=== PATIENT | male | born 1980 | race Caucasian/White ===

== ENCOUNTER 2016-07-09 10:03 | Outpatient (CLI) | payer MEDICARE, OTHER ==
[2014-12-26 10:51] VITALS: BP 114/68
[2016-07-09 10:29] LABS: BASOPHILS % 0.6 (0.0-1.5); EOSINOPHILS % 2.3 % (0.0-6.8); LYMPHOCYTES # 1.4 # k/uL (0.6-4.0); MEAN CORPUSCULAR HEMOGLOBIN 29.3 pg (28.0-34.0); MONOCYTES # 0.4 # k/uL (0.0-0.9); MONOCYTES % 6.1 % (0.0-11.0); NEUTROPHILS # 4.9 # k/uL (1.4-7.7)
== END 2016-07-09 10:15 ==
LOC: LAB 10:03
PROVIDERS: ATTEND Internal Medicine Endocrinology, Diabetes & Metabolism
DX: E05.90 Thyrotoxicosis, unspecified without thyrotoxic crisis or storm (principal)
CPT/HCPCS: 36415; 80053; 84439; 84443; 85025

== ENCOUNTER 2017-06-08 10:50 | Outpatient (CLI) | payer MEDICARE, OTHER ==
[2014-12-26 10:51] VITALS: BP 114/68
--- NOTE | 2017-06-08 13:23 | Diagnostic Imaging Report ---
STEPHY BYERS [facility] [address] [facility].[address] [address] Report Submission Date: Jun 08, 2017 11:38:32 AM [employer] Patient Study Name: MADYSON CARPENTER Date: Jun 08, 2017 11:08:02 AM [employer] Modality Type: CR Gender: M Description: LOWER EXTREMITY : 76 Institution: [facility] Physician: STEPHY BYERS Examination: Plain film foot History: 5th digit discomfort. Findings: 3 views of the foot demonstrates normal cortical margins. No fracture or dislocation. Inferior calcaneal spur. No soft tissue swelling. No joint effusion. Impression: Calcaneal spur. No acute appearing osseous process. Electronically signed on Jun 08, 2017 11:38:32 AM [employer] by: Lucas PAGAN
== END 2017-06-08 10:52 ==
LOC: LAB 10:50
PROVIDERS: ATTEND Family Medicine
DX: M79.89 Other specified soft tissue disorders (principal)
CPT/HCPCS: 36415; 73630; 84550

== ENCOUNTER 2017-06-17 10:21 | Outpatient (CLI) | payer MEDICARE, OTHER ==
[2014-12-26 10:51] VITALS: BP 114/68
[2017-06-17 10:41] LABS: BASOPHILS % 0.4 (0.0-1.5); EOSINOPHILS % 1.7 % (0.0-6.8); MEAN CORPUSCULAR HEMOGLOBIN 29.8 pg (28.0-34.0); MEAN CORPUSCULAR VOLUME 89.4 fl (80.0-100.0); NEUTROPHILS # 6.8 # k/uL (1.4-7.7)
[2017-06-17 10:57] LABS: eGFR (African) > 60; eGFR (Non-African) > 60
== END 2017-06-17 10:23 ==
LOC: LAB 10:21
PROVIDERS: ATTEND Internal Medicine Cardiovascular Disease
DX: I50.22 Chronic systolic (congestive) heart failure (principal); I48.2 Chronic atrial fibrillation; I10 Essential (primary) hypertension
CPT/HCPCS: 36415; 80053; 83880; 84443; 85025

== ENCOUNTER 2017-09-07 02:30 | Emergency (ER) | payer MEDICARE, OTHER ==
--- NOTE | 2017-09-07 03:03 | ED Physician Documentation ---
General Adult - HISTORIAN Historian: patient - HPI Stated Complaint: Bleeding varicose vein Chief Complaint: General Adult Onset: hours Timing: still present Severity: moderate Further Comments: yes (Pt is a 37 yo male with a bleeding varicose vein in his L ankle. Pt sat many hours with his leg elevated and could not get bleeding to stop. Pt has had this problem many times. He is to have vein stripping next week to try to clear up this problem.) - ROS CONST: no problems EYES/ENT: none CVS/RESP: none GI/: none MS/SKIN/LYMPH: other (bleeding varicosity L ankle) - PAST HX Past History: other (CHF) Surgeries/Procedures: cholecystectomy Allergies/Adverse Reactions: Allergies Allergy/AdvReac Type Severity Reaction Status Date / Time No Known Allergies Allergy Verified 09/07/17 02:43 Home Medications: Ambulatory Orders Medication Instructions Recorded Apixaban [Eliquis] 5 mg PO BID 12/26/14 Carvedilol [Coreg] 25 mg PO BID 12/26/14 Digoxin [Digox] 250 mcg D 12/26/14 Furosemide [Furosemide] 40 mg PO 6XDAY PRN 12/26/14 Lisinopril [Lisinopril] 20 mg PO D 12/26/14 Multivitamin [Daily Multiple 1 each PO DAILY 09/07/17 Vitamin] Spironolactone [Aldactone] 0.5 tab PO DAILY 09/07/17 - SOCIAL HX Smoking History: non-smoker Alcohol Use: occasionally - FAMILY HX Family History: No - VITAL SIGNS Vital Signs: Vital Signs Temp Pulse Resp BP Pulse Ox 97.4 F L 88 16 109/70 96 09/07/17 02:30 09/07/17 02:30 09/07/17 02:30 09/07/17 02:30 09/07/17 02:30 - REVIEWED ASSESSMENTS Nursing Assessment Reviewed: Yes Vitals Reviewed: Yes Progress - Progress Progress: Dermabond applied over previous bleeding site. Pressure bandage also applied to area of L ankle. improved Pt is to f/u for vein stripping next week. General Adult Physical Exam - PHYSICAL EXAM GENERAL APPEARANCE: mild distress NECK: normal inspection, supple RESPIRATORY: no resp distress, chest non-tender, breath sounds normal CVS: reg rate & rhythm, heart sounds normal, equal pulses BACK: normal inspection SKIN: other (evidence of a bleeding varicosity L ankle, bleeding now controlled) EXTREMITIES: non-tender, normal range of motion, other (evidence of a bleeding varicosity L ankle, bleeding now controlled) NEURO: oriented X3, motor nml, sensation nml Discharge Clincal Impression: varicose vein, with bleeding Referrals: Nereida Bryson MD [Primary Care Provider] - Condition: Good Disposition: 01 HOME, SELF-CARE Decision to Admit: NO Decision Time: 03:15
[2017-09-07 03:21] VITALS: BP 100/78
== END 2017-09-07 03:20 | disposition home or self-care (01) ==
LOC: ED 02:30
DX: I83.892 Varicose veins of left lower extremity with other complications (principal)
CPT/HCPCS: 99282

== ENCOUNTER 2018-03-17 08:56 | Outpatient (CLI) | payer MEDICARE, OTHER ==
[2018-03-17 10:58] LABS: eGFR (Non-African) > 60
[2018-03-17 16:32] LABS: BASO % 0.8 % (0.0-1.5); EOS % 1.8 % (0.0-6.8); LYMPH ABS # 1.12 thou/uL (0.60-4.00); MCH. 27.6 pg (28.0-34.0); MONOCYTE % 9.3 % (0.0-11.0); MONOCYTE ABS # 0.47 thou/uL (0.00-0.90); PLATELET COUNT 214 thou/uL (130-400)
== END 2018-03-17 08:57 ==
LOC: LAB 08:56
PROVIDERS: ATTEND Internal Medicine Cardiovascular Disease
DX: I42.0 Dilated cardiomyopathy (principal); I48.2 Chronic atrial fibrillation; I50.22 Chronic systolic (congestive) heart failure
CPT/HCPCS: 36415; 80053; 80162; 82728; 83880; 84443; 85025

== ENCOUNTER 2018-05-09 14:39 | Outpatient (CLI) | payer MEDICARE, OTHER ==
--- NOTE | 2018-05-09 15:30 | Diagnostic Imaging Report ---
STEPHY BYERS [facility] [address] [facility] [address] [place], [place]. [address] Report Submission Date: May 09, 2018 3:01:56 PM [employer] Patient Study Name: MADYSON CARPENTER Date: May 09, 2018 2:37:08 PM [employer] Modality Type: DX Gender: M Description: CHEST : 76 Institution: [facility] Physician: STEPHY BYERS Examination: PA and lateral chest. History: Evaluate lung hector. COUGH x2 WEEKS, Hx OF HEART FAILURE (Hx) Comparison exam: None provided. Findings: PA and lateral views of the chest demonstrates a prominent cardiac and mediastinal silhouette. Sternotomy wires. Aortic arch mesh. Mild central interstitial prominence. No focal consolidation. No blunting of the costophrenic margins. Left-sided cardiac pacemaker. Osseous structures are appropriate for age. Impression: No acute pulmonary process. Electronically signed on May 09, 2018 3:01:56 PM [employer] by: Lucas PAGAN
== END 2018-05-09 14:40 ==
LOC: RAD 14:39
PROVIDERS: ATTEND Family Medicine
DX: R05 Cough (principal)
CPT/HCPCS: 71046

== ENCOUNTER 2018-07-18 09:43 | Outpatient (CLI) | payer MEDICARE, OTHER ==
[2018-07-18 10:10] LABS: BASOPHILS % 0.4 (0.0-1.5); EOSINOPHILS % 1.7 % (0.0-6.8); MEAN CORPUSCULAR HEMOGLOBIN 28.2 pg (28.0-34.0); MONOCYTES % 6.6 % (0.0-11.0)
[2018-07-18 10:11] LABS: NEUTROPHILS # 7.3 # k/uL (1.4-7.7)
[2018-07-18 10:15] LABS: eGFR (Non-African) 44
== END 2018-07-18 10:00 ==
LOC: LAB 09:43
PROVIDERS: ATTEND Internal Medicine
DX: K66.1 Hemoperitoneum (principal); D62 Acute posthemorrhagic anemia; I42.8 Other cardiomyopathies
CPT/HCPCS: 36415; 80048; 85025

== ENCOUNTER 2018-08-15 11:17 | Outpatient (CLI) | payer MEDICARE, OTHER ==
[2018-08-15 12:09] LABS: eGFR (Non-African) > 60
== END 2018-08-15 11:19 ==
LOC: LAB 11:17
PROVIDERS: ATTEND Nurse Practitioner
DX: I42.8 Other cardiomyopathies (principal)
CPT/HCPCS: 36415; 80048

== ENCOUNTER 2018-08-29 09:52 | Outpatient (CLI) | payer MEDICARE, OTHER ==
[2018-08-29 10:34] LABS: MEAN CORPUSCULAR HEMOGLOBIN 28.5 pg (28.0-34.0)
[2018-08-29 10:35] LABS: eGFR (Non-African) > 60
== END 2018-08-29 09:54 ==
LOC: LAB 09:52
PROVIDERS: ATTEND Internal Medicine Cardiovascular Disease
DX: I42.0 Dilated cardiomyopathy (principal); I48.2 Chronic atrial fibrillation; I50.22 Chronic systolic (congestive) heart failure
CPT/HCPCS: 36415; 80053; 80162; 83880; 85027

== ENCOUNTER 2018-11-30 09:41 | Outpatient (CLI) | payer MEDICARE, OTHER ==
[2018-12-08 07:59] LABS: eGFR (Non-African) > 60
== END 2018-11-30 09:46 | disposition home or self-care (01) ==
LOC: LAB 09:41
PROVIDERS: ATTEND Internal Medicine Cardiovascular Disease
DX: I11.0 Hypertensive heart disease with heart failure (principal); I42.0 Dilated cardiomyopathy; I50.22 Chronic systolic (congestive) heart failure
CPT/HCPCS: 36415; 80053; 83880; 85027

== ENCOUNTER 2018-12-13 11:45 | Outpatient (CLI) | payer MEDICARE, OTHER ==
[2018-12-13 12:19] LABS: eGFR (Non-African) > 60
== END 2018-12-13 11:47 ==
LOC: LAB 11:45
PROVIDERS: ATTEND Internal Medicine Cardiovascular Disease
DX: I48.2 Chronic atrial fibrillation (principal); I50.22 Chronic systolic (congestive) heart failure
CPT/HCPCS: 36415; 80048; 85027

== ENCOUNTER 2019-01-02 14:39 | Emergency (ER) | payer MEDICARE, OTHER ==
[2019-01-02 14:55] LABS: BASOPHILS % 0.5 % (0.0-1.5); NEUTROPHILS # 5.1 # k/uL (1.4-7.7)
[2019-01-02 15:02] LABS: eGFR (Non-African) 53
[2019-01-02] MEDS ORDERED: CALCIUM CHLORIDE 1,000 MG/10 ML SYR IV ONE (15:09)
[2019-01-02] MEDS ORDERED: CALCIUM GLUCONATE 100 MG/ML VIAL IV ONE (15:09)
[2019-01-02] MEDS ORDERED: 0.9 % SODIUM CHLORIDE 1,000 ML IV ONE ×2 (15:23→16:48)
[2019-01-02] MEDS ORDERED: 0.9 % SODIUM CHLORIDE 500 ML IV ONE (15:55)
--- NOTE | 2019-01-02 16:00 | ED Physician Documentation ---
General Adult - HISTORIAN Historian: paramedics, parent - HPI Stated Complaint: cardiac arrest Chief Complaint: General Adult Onset: minutes Timing: still present Severity: severe Further Comments: yes (Pt is a 38 yo white male who comes to ER in cardiac arrest with CPR in progress. Pt has Stage III CHF and an implanted pacemaker/defibrillator. He was riding with family in the back seat of the car when he passed out and his defibrillator discharged. EMT arrived after 10 minutes and began CPR and transported pt to ER. EMT's were unable to give meds en route. Pt is a heart transplant candidate seen in [place] and is seen by Dr. Del Castillo at [facility] in [place]. See progress note.) - ROS CONST: other (Pt unresponsive, cannot give ROS) - PAST HX Past History: other (Cardiomyopathy, Stage III CHF, hx atrial fibrillation, anemia, thyrotoxicosis, HTN, aortic aneurysm, congenital coartation of the aorta.) Surgeries/Procedures: cholecystectomy, other (open heart surgery x3 in 22 years) Allergies/Adverse Reactions: Allergies Allergy/AdvReac Type Severity Reaction Status Date / Time No Known Drug Allergies Allergy Verified 01/02/19 20:55 Home Medications: Ambulatory Orders Medication Instructions Recorded Apixaban [Eliquis] 5 mg PO BID 12/26/14 Carvedilol [Coreg] 25 mg PO BID 12/26/14 Digoxin [Digox] 250 mcg D 12/26/14 Furosemide 40 mg PO 6XDAY PRN 12/26/14 Lisinopril 20 mg PO D 12/26/14 Multivitamin [Daily Multiple 1 each PO DAILY 09/07/17 Vitamin] Spironolactone [Aldactone] 0.5 tab PO DAILY 09/07/17 - SOCIAL HX Smoking History: other (smoking hx unk) - FAMILY HX Family History: No - VITAL SIGNS Vital Signs: Vital Signs Temp Pulse Resp BP Pulse Ox 100/78 09/07/17 03:20 - REVIEWED ASSESSMENTS Nursing Assessment Reviewed: Yes Vitals Reviewed: Yes Progress - Progress Progress: Pt with implanted pacer/defibrillator passed out in back seat of car and internal defibrillator discharged several times. EMS initiated CPR upon arrival about 10 min later. Defibrillator discharged several times while cpr in progress both en route to hospital and after arrival here, where cpr was continued. Pt given amiodarone x 2, and was intubated. Initial rhythm in ER was V-fib and pt was shocked with ER external defibrillator, and CPR continued. Pt was given 1 L IVF, and lidocaine 100 mg IV. He was given Epinephrine 1 mg, q 5 min. He remained in v-fib and received shocks x 4 at interval, when pt then showed a sinus rhythm and had a faint carotid pulse. Pt was hypotensive however and an epinephrine drip was started. Pt was given bicarbonate ampule. Frothy blood appeared in the ET tube and pt was suctioned. Pt remained in sinus rhythm with SBP as high as 120, but then became hypotensive the epinephrine drip rate was increased. Pt had some spontaneous respirations at a rate of about 8/min, and remained in this relatively stable condition for >20 min. Transport by helicopter was arranged to [facility], but shortly before Air transport arrived, pt's condition began to deteriorate w worsening hypotension and a second IV line with Levophed was established. Pt then went back into v- tach and was again given shocks at interval. Pt received bicarbonate again in the course of this very lengthy revival attempt. Pulse checks, or rather heart activity checks, were conducted with ultrasound provided by flight crew, but there was little if any cardiac activity and no perfusing activity. Pt's pupils at this time appeared fixed and dilated. Family member, pt's mother, was present during some of the latter stages of resuscitation, which in the ER went on for 114 minutes in addition to the time of resuscitation efforts pilot captain. The futility of continuing these efforts was discussed with pt's mother and with ER staff. CPR was discontinued at 16:21 (time of ). See nurses note and code run chart for details of resuscitation attempt. ED Results Lab/Radiology - Lab Results Lab Results: Lab Results 01/02/19 01/02/19 01/02/19 14:51 14:51 14:51 WBC 8.30 K/ul K/ul (4.00-12.00) RBC 4.57 M/ul M/ul (3.90-5.20) Hgb 12.2 g/dL g/dL (12.0-18.0) Hct 37.5 % % (37.0-53.0) MCV 82.0 fl fl (80.0-100.0) MCH 26.8 pg L pg (28.0-34.0) MCHC 32.6 g/dL g/dL (30.0-36.0) RDW 15.3 % H % (11.3-14.3) Plt Count 225 K/mm3 K/mm3 (130-400) Neut % (Auto) 60.7 % % (39.0-79.0) Lymph % (Auto) 33.1 % % (16.0-50.0) [place] % (Auto) 4.9 % % (0.0-11.0) Eos % (Auto) 0.8 % % (0.0-6.8) Baso % (Auto) 0.5 % % (0.0-1.5) Neut # (Auto) 5.1 # k/uL # k/uL (1.4-7.7) Lymph # (Auto) 2.8 # k/uL # k/uL (0.6-4.0) Screven # (Auto) 0.4 # k/uL # k/uL (0.0-0.9) Eos # (Auto) 0.1 # k/uL # k/uL (0.0-0.6) Baso # (Auto) 0.0 # k/uL # k/uL (0.0-0.5) Sodium 132 mmol/L L mmol/L (137-145) Potassium 3.0 mmol/L L mmol/L (3.5-5.1) Chloride 83 mmol/L L mmol/L (98-107) Carbon Dioxide 28 mmol/L mmol/L (22-30) Anion Gap 24.0 mmol/L H mmol/L (3-11) BUN 43 mg/dL H mg/dL (9-20) Creatinine 1.55 mg/dL H mg/dL (0.66-1.25) Est GFR ( Amer) > 60 (60 - ) Est GFR (Non-Af Amer) 53 L (60 - ) Glucose 184 mg/dL H mg/dL (74-106) Calcium 9.6 mg/dL mg/dL (8.4-10.2) Total Bilirubin 2.8 mg/dL H mg/dL (0.2-1.3) AST 41 U/L U/L (15-46) ALT 13 U/L U/L (13-69) Alkaline Phosphatase 80 U/L U/L (38-126) Creatine Kinase 116 U/L U/L (55-170) Troponin I 0.047 ng/mL H ng/mL (0.012-0.034) Total Protein 8.0 g/dL g/dL (6.3-8.2) Albumin 5.0 g/dL g/dL (3.5-5.0) - Orders Orders: ED Orders Category Date Time Status Continuous EKG monitoring Q30M Care 01/02/19 14:51 Ordered Continuous Pulse Oximetry Q30M Care 01/02/19 14:[address] IV Lock 1T Care 01/02/19 14:51 Ordered CHEST 1VIEW [RAD] Stat Exams 01/02/19 Ordered CBC/PLATELET/DIFF Routine Lab 01/02/19 14:51 Ordered CMP Routine Lab 01/02/19 14:51 Ordered CREATINE KINASE Routine Lab 01/02/19 14:51 Ordered TROPONIN I Stat Lab 01/02/19 14:51 Ordered 0.9 % Sodium Chloride [Normal Saline] 1,000 ml Med 01/02/19 15:23 Discontinued IV .STK-MED Calcium Chloride Med 01/02/19 15:09 Discontinued 1,000 mg IV .STK-MED ONE Calcium Gluconate Med 01/02/19 15:09 Discontinued 1,000 mg IV .STK-MED ONE Oxygen Daily Oxygen 01/02/19 15:00 Ordered EKG WITH COMPARISON Stat Ther 01/02/19 14:51 Ordered General Adult Physical Exam - PHYSICAL EXAM GENERAL APPEARANCE: unresponsive EENT: other (pupils initially small and ? reactive (later fixed and dilated)) NECK: normal inspection RESPIRATORY: other (initially BVM in use, then intubated) ABDOMEN: soft, decreased BS. No: distended SKIN: pallor NEURO: other (unresponsive) Discharge Clincal Impression: Cardiac arrest Referrals: Nereida Bryson MD [Primary Care Provider] - Condition: Critical Disposition: 20 Decision to Admit: NO Decision Time: 16:45
--- NOTE | 2019-01-02 16:06 | Diagnostic Imaging Report ---
ANDRA GONZALEZ [facility] [address] [facility] [address] [place], [place]. [address] Report Submission Date: Jan 02, 2019 3:45:01 PM CDT Patient Study Name: MADYSON CARPENTER Date: Jan 02, 2019 3:23:26 PM CDT Modality Type: DX Gender: M Description: CHEST 1VIEW : 76 Institution: [facility] Physician: ANDRA GONZALEZ Portable chest History: Status post code Two portable views of the chest were obtained and comparison made with May 09, 2018. The heart is enlarged. There is left ventricular enlargement. Stents project over the upper and lower margins of the heart, exact positioning is uncertain on the basis of an AP radiograph. There has been a median sternotomy. A multi lead pacing device is present. Defibrillator paddles overlie the chest. There is no pneumothorax. An endotracheal tube projects at the level of the aortic knob. Nasogastric tube is seen passing into the stomach. Bilateral upper lobe airspace disease is present, significantly worse on the right than on the left. There is no pleural effusion. Impression: Cardiomegaly with left ventricular enlargement status post median sternotomy. Stents project over the superior and inferior heart, of uncertain location on the basis of an AP radiograph. Multi lead pacing device. Endotracheal tube and nasogastric tube as described. Bilateral upper lobe airspace disease, right worse than left. These findings likely represent asymmetric pulmonary edema. Electronically signed on Jan 02, 2019 3:45:01 PM CDT by: Christelle PAGAN
[2019-01-02] MEDS ORDERED: LACTATED RINGERS 1,000 ML IV ONE (16:48)
[2019-01-02] MEDS ORDERED: SODIUM BICARBONATE 50 MEQ/50 ML SYRINGE ONE (17:00)
[2019-01-02] MEDS ORDERED: MAGNESIUM SULFATE 1 GM/2ML VIAL ONE (17:00)
[2019-01-02] MEDS ORDERED: EPINEPHrine 0.1 MG/ML DISP.SYRIN IVP ONE (17:00)
[2019-01-02] MEDS ORDERED: EPINEPHRINE IV STA (17:38)
[2019-01-02] MEDS ORDERED: SODIUM CHLORIDE 0.9% IV STA ×2 (17:38→17:39)
[2019-01-02] MEDS ORDERED: NOREPINEPHRINE BITARTRATE IV STA (17:39)
== END 2019-01-03 06:05 | disposition expired ==
LOC: ED 14:39
DX: I46.9 Cardiac arrest, cause unspecified (principal)
CPT/HCPCS: 36415; 51702; 71045; 80053; 82550; 84484; 85025; 93005; 96360; 96361; 96374; 99283; 99284; J0171; J0610; J3475; J7030; J7050; J7060; J7120; S1016